=== PATIENT | female | born 1935 | race Caucasian/White ===

== ENCOUNTER 2019-05-30 12:28 | Emergency (ER) | payer MEDICARE, OTHER ==
[~2019-05-30] VITALS: Ht 157.5 cm; Wt 81.8 kg
[2019-05-30] MEDS ORDERED: CALC-1085 PO (12:50)
[2019-05-30] MEDS ORDERED: SIMV-259 PO (12:50)
[2019-05-30] MEDS ORDERED: LEVO50 PO (12:50)
[2019-05-30] MEDS ORDERED: SPIR25 PO (12:50)
[2019-05-30] MEDS ORDERED: DIVA125T32 PO (12:50)
[2019-05-30] MEDS ORDERED: PREG75 PO (12:50)
[2019-05-30] MEDS ORDERED: NITR0.4T52 SL (12:50)
[2019-05-30] MEDS ORDERED: LOSA50TA64 PO (12:50)
[2019-05-30] MEDS ORDERED: TRAM50TA4 PO (12:50)
[2019-05-30] MEDS ORDERED: HYDR25TA PO (12:50)
[2019-05-30] MEDS ORDERED: TRAZ-220 PO (12:50)
[2019-05-30] MEDS ORDERED: DONE10TA8 PO (12:50)
[2019-05-30] MEDS ORDERED: BISA10SU11 PR (12:51)
[2019-05-30] MEDS ORDERED: ACETAMINOPHEN 500 MG TABLET PO ONE (13:30)
[2019-05-30] MEDS ORDERED: TraMADol HCL 50 MG TABLET PO ONE (14:45)
[2019-05-30 17:30] VITALS: BP 144/58
== END 2019-05-30 18:30 | disposition home or self-care (01) ==
LOC: EDUNIT# 12:28 → EMS 12:40
DX: S80.01XA Contusion of right knee, initial encounter (principal); S00.93XA Contusion of unspecified part of head, initial encounter; S60.211A Contusion of right wrist, initial encounter; S70.02XA Contusion of left hip, initial encounter; S40.011A Contusion of right shoulder, initial encounter; S10.93XA Contusion of unspecified part of neck, initial encounter; F32.9 Major depressive disorder, single episode, unspecified; I10 Essential (primary) hypertension; E78.00 Pure hypercholesterolemia, unspecified; E03.9 Hypothyroidism, unspecified; Z88.0 Allergy status to penicillin; W19.XXXA Unspecified fall, initial encounter; Y93.89 Activity, other specified; Y92.89 Other specified places as the place of occurrence of the external cause; Y99.8 Other external cause status
CPT/HCPCS: 70450; 72125; 73503

== ENCOUNTER 2021-11-27 11:17 | Inpatient (IN) | payer MEDICARE, OTHER ==
[~2021-11-27] VITALS: Ht 165.1 cm; Wt 93.9 kg
[~2021-11-27 11:17] MED LIST: BISA10SU11 PR; CALC-1085 PO; DIVA125T32 PO; DONE10TA8 PO; HYDR25TA2 PO; LEVO50 PO; LOSA-382 PO; NITR0.4T52 SL; PREG75 PO; SIMV-259 PO; SPIR-37 PO; TRAM50TA4 PO; TRAZ-257 PO
[2021-11-27] MEDS ORDERED: 0.9% SODIUM CHLORIDE 10 ML SYRINGE IVP PRN (13:15)
[2021-11-27] MEDS ORDERED: SODIUM CHLORIDE 0.9% 2,650 ML IV ONE (13:15)
[2021-11-27 13:40] LABS: BASOPHILS % (AUTO) 0.1 % (0.0-2.0); EOSINOPHILS % (AUTO) 0 % (1.0-6.0); HEMATOCRIT 36.8 % (36-46); HEMOGLOBIN 12.4 g/dL (12.0-16.0); LYMPHOCYTES # (AUTO) 1.6 K/uL (1.0-4.8); LYMPHOCYTES % (AUTO) 6.8 % (22.0-44.0); MEAN CORPUSCULAR HEMOGLOBIN 29.9 pg (26.0-34.0); MEAN CORPUSCULAR HGB CONC 33.8 G/dL (31.0-37.0); MEAN CORPUSCULAR VOLUME 89 fL (80-100); MONOCYTES # (AUTO) 1.5 K/uL (0.1-1.0); MONOCYTES % (AUTO) 6.3 % (2.0-9.0); NEUTROPHILS # (AUTO) 20.2 K/uL (1.8-7.7); PLATELET COUNT (AUTO) 146 K/uL (150-450); RED BLOOD CELL COUNT(AUTO) 4.15 MIL/uL (4.00-5.20)
[2021-11-27 13:43] LABS: NEUTROPHILS % (AUTO) 86.8 % (40.0-70.0)
[2021-11-27 13:50] LABS: PROTHROMBIN TIME 11.1 SEC (9.4-11.6)
[2021-11-27 13:51] LABS: CALCIUM, TOTAL 8.7 mg/dL (8.8-10.5); CREATININE 2.38 mg/dL (0.60-1.30); POTASSIUM 4.1 mmol/L (3.5-5.1)
[2021-11-27 13:56] LABS: ALBUMIN 2.3 g/dL (3.4-5.0); BILIRUBIN,TOTAL 0.6 mg/dL (0.1-1.0); TOTAL PROTEIN, SERUM 7.2 g/dL (6.4-8.2)
[2021-11-27 14:23] LABS: LACTIC ACID 1.2 mmol/L (0.4-2.0)
[2021-11-27] MEDS ORDERED: CefTRIAXone 1 GM/DEXTROSE 50 ML IV ONE (14:30)
[2021-11-27] MEDS ORDERED: VANCOMYCIN HCL 1 GM/D5% WATER 200 ML IV ONE (14:30)
[2021-11-27 14:55] LABS: COVID AG,FIA SOURCE NASAL SWAB
[2021-11-27] MEDS ORDERED: *CLINICAL-CEFTAROLINE DOSING CLINICAL ONE (15:30)
[2021-11-27] MEDS ORDERED: SODIUM CHLORIDE 0.9% 1,000 ML IV ONE (15:45)
[2021-11-27] MEDS ORDERED: BISACODYL 10 MG RECTAL RECTAL SUPPOSITORY PR PRN (15:45)
[2021-11-27] MEDS ORDERED: DEXTROSE 50%-WATER 25 GM/50 ML SYRINGE IVP PRN (15:45)
[2021-11-27] MEDS: HEPARIN SODIUM,PORCINE 5,000 UNITS/ML VIAL SQ SCH (21:00)
[2021-11-27 22:07] VITALS: BP 119/24
[2021-11-28] MEDS: ACETAMINOPHEN 325 MG TABLET PO PRN ×3 (00:34→21:11)
[2021-11-28 04:43] VITALS: BP 130/56
[2021-11-28 05:11] LABS: GLUCOMETER DEV NAME(LOC) 6N.2; GLUCOSE,POINT OF CARE 96 MG/DL (70-110)
[2021-11-28 06:42] LABS: BASOPHILS % (AUTO) 0.1 % (0.0-2.0); EOSINOPHILS % (AUTO) 0.1 % (1.0-6.0); HEMATOCRIT 35.1 % (36-46); HEMOGLOBIN 12.2 g/dL (12.0-16.0); LYMPHOCYTES # (AUTO) 1.3 K/uL (1.0-4.8); LYMPHOCYTES % (AUTO) 5.6 % (22.0-44.0); MEAN CORPUSCULAR HEMOGLOBIN 30.7 pg (26.0-34.0); MEAN CORPUSCULAR HGB CONC 34.7 G/dL (31.0-37.0); MEAN CORPUSCULAR VOLUME 88 fL (80-100); MONOCYTES # (AUTO) 1.4 K/uL (0.1-1.0); PLATELET COUNT (AUTO) 132 K/uL (150-450); RED BLOOD CELL COUNT(AUTO) 3.96 MIL/uL (4.00-5.20); RED CELL DISTRIBUTION WIDTH 15.9 % (11.5-14.5)
[2021-11-28 06:53] LABS: NEUTROPHILS % (AUTO) 88.2 % (40.0-70.0)
[2021-11-28 06:55] LABS: CALCIUM, TOTAL 8.3 mg/dL (8.8-10.5); CREATININE 2.02 mg/dL (0.60-1.30)
[2021-11-28 07:14] LABS: POTASSIUM 3.6 mmol/L (3.5-5.1)
[2021-11-28 08:00] VITALS: BP 121/55
[2021-11-28] MEDS: HEPARIN SODIUM,PORCINE 5,000 UNITS/ML VIAL SQ SCH ×2 (08:48→22:21)
[2021-11-28] MEDS: CEFTAROLINE FOSAMIL 300 MG in DEXTROSE 5%-WATER 150 ML IV SCH ×2 (08:49→20:44)
[2021-11-28] MEDS: FAMOTIDINE 20 MG TABLET PO SCH (08:49)
[2021-11-28] MEDS: SODIUM CHLORIDE 0.9% 1,000 ML IV SCH (10:31)
[2021-11-28] MEDS: MORPHINE SULFATE 2 MG/ML SYRINGE IVP PRN ×3 (10:52→19:55)
[2021-11-28 13:32] LABS: GLUCOMETER DEV NAME(LOC) 6N.2; GLUCOSE,POINT OF CARE 160 MG/DL (70-110)
[2021-11-28 16:00] VITALS: BP 108/52
[2021-11-28 19:31] LABS: GLUCOMETER DEV NAME(LOC) 6N.2; GLUCOSE,POINT OF CARE 131 MG/DL (70-110)
[2021-11-28 19:55] VITALS: BP 144/58
[2021-11-28 22:37] VITALS: BP 145/60
[2021-11-28] MEDS: INSULIN LISPRO 100 UNITS/ML SQ PRN (23:20)
[2021-11-28 23:26] LABS: GLUCOMETER DEV NAME(LOC) 6N.2; GLUCOSE,POINT OF CARE 190 MG/DL (70-110)
[2021-11-29] MEDS: MELATONIN 3 MG TABLET PO PRN ×2 (00:53→22:44)
[2021-11-29 02:37] VITALS: BP 140/60
[2021-11-29] MEDS: MORPHINE SULFATE 2 MG/ML SYRINGE IVP PRN (05:39)
[2021-11-29 05:40] VITALS: BP 146/65
[2021-11-29 06:41] LABS: BASOPHILS % (AUTO) 0.1 % (0.0-2.0); EOSINOPHILS % (AUTO) 0.3 % (1.0-6.0); HEMATOCRIT 40.5 % (36-46); HEMOGLOBIN 13.4 g/dL (12.0-16.0); LYMPHOCYTES # (AUTO) 1.6 K/uL (1.0-4.8); LYMPHOCYTES % (AUTO) 5.7 % (22.0-44.0); MEAN CORPUSCULAR VOLUME 91 fL (80-100); MONOCYTES # (AUTO) 1.5 K/uL (0.1-1.0); MONOCYTES % (AUTO) 5.4 % (2.0-9.0); NEUTROPHILS # (AUTO) 25.2 K/uL (1.8-7.7); RED BLOOD CELL COUNT(AUTO) 4.45 MIL/uL (4.00-5.20); RED CELL DISTRIBUTION WIDTH 16.5 % (11.5-14.5)
[2021-11-29 07:55] LABS: NEUTROPHILS % (AUTO) 88.5 % (40.0-70.0)
[2021-11-29 08:01] LABS: GLUCOMETER DEV NAME(LOC) 6N.2; GLUCOSE,POINT OF CARE 94 MG/DL (70-110)
[2021-11-29 08:27] VITALS: BP 146/51
[2021-11-29] MEDS: HEPARIN SODIUM,PORCINE 5,000 UNITS/ML VIAL SQ SCH ×2 (08:33→21:25)
[2021-11-29] MEDS: FAMOTIDINE 20 MG TABLET PO SCH (08:33)
[2021-11-29 08:41] LABS: PLATELET COUNT (AUTO) 146 K/uL (150-450)
[2021-11-29] MEDS: CEFTAROLINE FOSAMIL 300 MG in DEXTROSE 5%-WATER 150 ML IV SCH ×2 (12:40→20:00)
[2021-11-29] MEDS: SODIUM CHLORIDE 0.9% 1,000 ML IV SCH ×2 (12:41→14:46)
[2021-11-29 16:26] LABS: GLUCOMETER DEV NAME(LOC) 4E.2; GLUCOSE,POINT OF CARE 147 MG/DL (70-110)
[2021-11-29 16:49] VITALS: BP 138/72
[2021-11-29] MEDS: INSULIN LISPRO 100 UNITS/ML SQ PRN ×2 (17:19→22:51)
[2021-11-29 19:31] LABS: GLUCOMETER DEV NAME(LOC) 6N.1; GLUCOSE,POINT OF CARE 228 MG/DL (70-110)
[2021-11-29 19:57] VITALS: BP 157/62
[2021-11-29 22:37] VITALS: BP 157/62
[2021-11-29 22:56] LABS: GLUCOMETER DEV NAME(LOC) 4E.2; GLUCOSE,POINT OF CARE 177 MG/DL (70-110)
[2021-11-30 05:10] VITALS: BP 155/77
[2021-11-30 06:30] VITALS: BP 148/63
[2021-11-30 07:00] LABS: GLUCOMETER DEV NAME(LOC) 4E.2; GLUCOSE,POINT OF CARE 112 MG/DL (70-110)
[2021-11-30 08:00] VITALS: BP 149/77
[2021-11-30] MEDS: HEPARIN SODIUM,PORCINE 5,000 UNITS/ML VIAL SQ SCH ×2 (08:33→19:39)
[2021-11-30] MEDS: FAMOTIDINE 20 MG TABLET PO SCH (08:33)
[2021-11-30] MEDS: SODIUM CHLORIDE 0.9% 1,000 ML IV SCH ×2 (08:34→19:45)
[2021-11-30] MEDS: CEFTAROLINE FOSAMIL 300 MG in DEXTROSE 5%-WATER 150 ML IV SCH ×2 (08:34→19:39)
[2021-11-30 09:04] LABS: BASOPHILS % (AUTO) 0.2 % (0.0-2.0); EOSINOPHILS % (AUTO) 0.2 % (1.0-6.0); HEMATOCRIT 34.9 % (36-46); HEMOGLOBIN 11.8 g/dL (12.0-16.0); LYMPHOCYTES # (AUTO) 1.6 K/uL (1.0-4.8); LYMPHOCYTES % (AUTO) 7.2 % (22.0-44.0); MEAN CORPUSCULAR HEMOGLOBIN 29.8 pg (26.0-34.0); MEAN CORPUSCULAR HGB CONC 33.8 G/dL (31.0-37.0); MEAN CORPUSCULAR VOLUME 88 fL (80-100); MONOCYTES # (AUTO) 1.4 K/uL (0.1-1.0); MONOCYTES % (AUTO) 6.1 % (2.0-9.0); NEUTROPHILS % (AUTO) 86.3 % (40.0-70.0); PLATELET COUNT (AUTO) 185 K/uL (150-450); RED BLOOD CELL COUNT(AUTO) 3.95 MIL/uL (4.00-5.20); RED CELL DISTRIBUTION WIDTH 16.2 % (11.5-14.5)
[2021-11-30 09:15] LABS: CALCIUM, TOTAL 8.3 mg/dL (8.8-10.5); CREATININE 1.44 mg/dL (0.60-1.30); POTASSIUM 3.2 mmol/L (3.5-5.1)
[2021-11-30] MEDS: INSULIN LISPRO 100 UNITS/ML SQ PRN ×2 (12:08→20:30)
[2021-11-30 16:23] VITALS: BP 137/56
[2021-11-30 19:36] LABS: GLUCOMETER DEV NAME(LOC) 4E.2; GLUCOSE,POINT OF CARE 116 MG/DL (70-110)
[2021-11-30 19:45] LABS: GLUCOMETER DEV NAME(LOC) 6N.2; GLUCOSE,POINT OF CARE 141 MG/DL (70-110)
[2021-11-30] MEDS: ACETAMINOPHEN 325 MG TABLET PO PRN (19:51)
[2021-11-30 20:33] VITALS: BP 125/71
[2021-11-30 20:46] LABS: GLUCOMETER DEV NAME(LOC) 6N.1; GLUCOSE,POINT OF CARE 154 MG/DL (70-110)
[2021-11-30] MEDS: POTASSIUM CHL 10 MEQ/WATER 50 ML IV SCH (23:05)
[2021-12-01] MEDS: POTASSIUM CHL 10 MEQ/WATER 50 ML IV SCH ×3 (00:19→02:09)
[2021-12-01] MEDS: MORPHINE SULFATE 2 MG/ML SYRINGE IVP PRN ×2 (03:15→22:49)
[2021-12-01 04:01] VITALS: BP 165/65
[2021-12-01] MEDS: ACETAMINOPHEN 325 MG TABLET PO PRN (05:32)
[2021-12-01 06:12] LABS: GLUCOMETER DEV NAME(LOC) 4E.2; GLUCOSE,POINT OF CARE 100 MG/DL (70-110)
[2021-12-01 06:57] LABS: CALCIUM, TOTAL 8.2 mg/dL (8.8-10.5); CREATININE 1.42 mg/dL (0.60-1.30); POTASSIUM 3.7 mmol/L (3.5-5.1)
[2021-12-01 07:19] VITALS: BP 153/62
[2021-12-01] MEDS: CEFTAROLINE FOSAMIL 300 MG in DEXTROSE 5%-WATER 150 ML IV SCH (08:30)
[2021-12-01] MEDS: HEPARIN SODIUM,PORCINE 5,000 UNITS/ML VIAL SQ SCH ×2 (08:31→20:10)
[2021-12-01] MEDS: SODIUM CHLORIDE 0.9% 1,000 ML IV SCH ×2 (08:31→22:42)
[2021-12-01] MEDS: FAMOTIDINE 20 MG TABLET PO SCH (08:31)
[2021-12-01 13:01] LABS: GLUCOMETER DEV NAME(LOC) 6N.1; GLUCOSE,POINT OF CARE 135 MG/DL (70-110)
[2021-12-01 16:23] VITALS: BP 144/71
[2021-12-01] MEDS: INSULIN LISPRO 100 UNITS/ML SQ PRN ×2 (17:13→20:40)
[2021-12-01 17:26] LABS: GLUCOMETER DEV NAME(LOC) 4E.2; GLUCOSE,POINT OF CARE 186 MG/DL (70-110)
[2021-12-01] MEDS: CEFTAROLINE FOSAMIL 400 MG in DEXTROSE 5%-WATER 250 ML IV SCH (20:10)
[2021-12-01 20:31] VITALS: BP 146/52
[2021-12-01] MEDS: MELATONIN 3 MG TABLET PO PRN (22:49)
[2021-12-01 23:21] LABS: GLUCOMETER DEV NAME(LOC) 6N.2; GLUCOSE,POINT OF CARE 146 MG/DL (70-110)
[2021-12-02 04:14] VITALS: BP 155/56
[2021-12-02 06:58] LABS: BASOPHILS % (AUTO) 0.4 % (0.0-2.0); EOSINOPHILS % (AUTO) 0.4 % (1.0-6.0); HEMATOCRIT 34.3 % (36-46); HEMOGLOBIN 11.7 g/dL (12.0-16.0); LYMPHOCYTES # (AUTO) 2.3 K/uL (1.0-4.8); LYMPHOCYTES % (AUTO) 16.7 % (22.0-44.0); MEAN CORPUSCULAR HEMOGLOBIN 29.7 pg (26.0-34.0); MEAN CORPUSCULAR HGB CONC 34.1 G/dL (31.0-37.0); MEAN CORPUSCULAR VOLUME 87 fL (80-100); MONOCYTES # (AUTO) 0.9 K/uL (0.1-1.0); MONOCYTES % (AUTO) 6.6 % (2.0-9.0); NEUTROPHILS # (AUTO) 10.3 K/uL (1.8-7.7); NEUTROPHILS % (AUTO) 75.9 % (40.0-70.0); PLATELET COUNT (AUTO) 239 K/uL (150-450); RED BLOOD CELL COUNT(AUTO) 3.94 MIL/uL (4.00-5.20); RED CELL DISTRIBUTION WIDTH 15.9 % (11.5-14.5)
[2021-12-02 08:29] VITALS: BP 161/56
[2021-12-02 08:41] LABS: GLUCOMETER DEV NAME(LOC) 6N.1; GLUCOSE,POINT OF CARE 102 MG/DL (70-110)
[2021-12-02] MEDS: FAMOTIDINE 20 MG TABLET PO SCH (08:46)
[2021-12-02] MEDS: HEPARIN SODIUM,PORCINE 5,000 UNITS/ML VIAL SQ SCH ×2 (08:47→21:57)
[2021-12-02] MEDS: CEFTAROLINE FOSAMIL 400 MG in DEXTROSE 5%-WATER 250 ML IV SCH ×2 (08:48→18:07)
[2021-12-02] MEDS: LOSARTAN POTASSIUM 25 MG TABLET PO SCH (10:01)
[2021-12-02] MEDS: SODIUM CHLORIDE 0.9% 1,000 ML IV SCH (12:44)
[2021-12-02 15:52] VITALS: BP 145/66
[2021-12-02] MEDS ORDERED: CLINDAMYCIN HCL 300 MG CAPSULE PO SCH (16:00)
[2021-12-02 19:26] LABS: GLUCOMETER DEV NAME(LOC) 4E.2; GLUCOSE,POINT OF CARE 123 MG/DL (70-110)
[2021-12-02 20:04] VITALS: BP 141/53
[2021-12-03] MEDS: MELATONIN 3 MG TABLET PO PRN (04:01)
[2021-12-03] MEDS: ACETAMINOPHEN 325 MG TABLET PO PRN ×2 (04:01→18:34)
[2021-12-03] MEDS: SODIUM CHLORIDE 0.9% 1,000 ML IV SCH ×2 (04:05→17:34)
[2021-12-03 05:04] VITALS: BP 144/57
[2021-12-03 05:11] LABS: GLUCOMETER DEV NAME(LOC) 4E.2; GLUCOSE,POINT OF CARE 126 MG/DL (70-110)
[2021-12-03 07:41] LABS: GLUCOMETER DEV NAME(LOC) 6N.1; GLUCOSE,POINT OF CARE 138 MG/DL (70-110)
[2021-12-03 07:47] VITALS: BP 155/67
[2021-12-03] MEDS: CEFTAROLINE FOSAMIL 400 MG in DEXTROSE 5%-WATER 250 ML IV SCH ×2 (08:10→17:34)
[2021-12-03] MEDS: LOSARTAN POTASSIUM 25 MG TABLET PO SCH (08:10)
[2021-12-03] MEDS: FAMOTIDINE 20 MG TABLET PO SCH (08:11)
[2021-12-03] MEDS: HEPARIN SODIUM,PORCINE 5,000 UNITS/ML VIAL SQ SCH ×2 (08:15→20:19)
[2021-12-03] MEDS: MORPHINE SULFATE 2 MG/ML SYRINGE IVP PRN ×2 (11:22→20:24)
[2021-12-03 16:30] VITALS: BP 152/42
[2021-12-03 19:42] VITALS: BP 130/75
[2021-12-03 22:11] LABS: GLUCOMETER DEV NAME(LOC) 6N.1; GLUCOSE,POINT OF CARE 125 MG/DL (70-110)
[2021-12-04] MEDS: ACETAMINOPHEN 325 MG TABLET PO PRN (01:12)
[2021-12-04 05:53] VITALS: BP 144/56
[2021-12-04] MEDS: CEFTAROLINE FOSAMIL 400 MG in DEXTROSE 5%-WATER 250 ML IV SCH ×2 (06:17→17:30)
[2021-12-04 06:36] LABS: GLUCOMETER DEV NAME(LOC) 6N.2; GLUCOSE,POINT OF CARE 112 MG/DL (70-110)
[2021-12-04 08:16] LABS: GLUCOMETER DEV NAME(LOC) 4E.2; GLUCOSE,POINT OF CARE 127 MG/DL (70-110)
[2021-12-04 08:16] LABS: GLUCOMETER DEV NAME(LOC) 4E.2; GLUCOSE,POINT OF CARE 134 MG/DL (70-110)
[2021-12-04 08:28] VITALS: BP 168/57
[2021-12-04] MEDS: LOSARTAN POTASSIUM 25 MG TABLET PO SCH (08:50)
[2021-12-04] MEDS: FAMOTIDINE 20 MG TABLET PO SCH (08:50)
[2021-12-04] MEDS: HEPARIN SODIUM,PORCINE 5,000 UNITS/ML VIAL SQ SCH (08:51)
[2021-12-04] MEDS: SODIUM CHLORIDE 0.9% 1,000 ML IV SCH (08:51)
[2021-12-04] MEDS: MORPHINE SULFATE 2 MG/ML SYRINGE IVP PRN ×2 (09:04→17:34)
[2021-12-04] MEDS ORDERED: CLIN300C3 PO (12:56)
[2021-12-04 13:51] LABS: BASOPHILS % (AUTO) 0.4 % (0.0-2.0); EOSINOPHILS % (AUTO) 0.7 % (1.0-6.0); HEMATOCRIT 32.4 % (36-46); HEMOGLOBIN 10.8 g/dL (12.0-16.0); LYMPHOCYTES # (AUTO) 1.9 K/uL (1.0-4.8); LYMPHOCYTES % (AUTO) 16.5 % (22.0-44.0); MEAN CORPUSCULAR HEMOGLOBIN 29.3 pg (26.0-34.0); MEAN CORPUSCULAR HGB CONC 33.3 G/dL (31.0-37.0); MEAN CORPUSCULAR VOLUME 88 fL (80-100); MONOCYTES # (AUTO) 0.8 K/uL (0.1-1.0); MONOCYTES % (AUTO) 6.8 % (2.0-9.0); NEUTROPHILS # (AUTO) 8.7 K/uL (1.8-7.7); NEUTROPHILS % (AUTO) 75.6 % (40.0-70.0); PLATELET COUNT (AUTO) 262 K/uL (150-450); RED BLOOD CELL COUNT(AUTO) 3.68 MIL/uL (4.00-5.20); RED CELL DISTRIBUTION WIDTH 16.1 % (11.5-14.5)
[2021-12-04 14:03] LABS: CALCIUM, TOTAL 8.1 mg/dL (8.8-10.5); CREATININE 1.34 mg/dL (0.60-1.30); POTASSIUM 3.5 mmol/L (3.5-5.1)
[2021-12-04 14:09] LABS: ALBUMIN 1.6 g/dL (3.4-5.0); BILIRUBIN,TOTAL 0.6 mg/dL (0.1-1.0); TOTAL PROTEIN, SERUM 7.1 g/dL (6.4-8.2)
[2021-12-04 19:46] LABS: GLUCOMETER DEV NAME(LOC) 4E.2; GLUCOSE,POINT OF CARE 103 MG/DL (70-110)
== END 2021-12-04 18:40 | DRG 603 ==
LOC: EMS 11:22 → 6S 20:32 → 6N 11-29 16:29 → 6S 11-30 10:17
PROVIDERS: ADMIT Internal Medicine; ATTEND Internal Medicine
PROC: 05HF33Z Insertion of Infusion Device into Left Cephalic Vein, Percutaneous Approach (ICD-10-PCS; principal; 2021-12-03)
DX: L03.116 Cellulitis of left lower limb (principal); N17.9 Acute kidney failure, unspecified; F03.90 Unspecified dementia, unspecified severity, without behavioral disturbance, psychotic disturbance, mood disturbance, and anxiety; E03.9 Hypothyroidism, unspecified; E66.9 Obesity, unspecified; Z68.32 Body mass index [BMI] 32.0-32.9, adult; E78.00 Pure hypercholesterolemia, unspecified; F32.A Depression, unspecified; E11.40 Type 2 diabetes mellitus with diabetic neuropathy, unspecified; N28.9 Disorder of kidney and ureter, unspecified; Z20.822 Contact with and (suspected) exposure to COVID-19; I11.9 Hypertensive heart disease without heart failure; I25.10 Atherosclerotic heart disease of native coronary artery without angina pectoris; Z87.442 Personal history of urinary calculi; Z88.0 Allergy status to penicillin; Z79.4 Long term (current) use of insulin
CPT/HCPCS: 36245; 36569; 71045; 73700; 76937; 80048; 80053; 82962; 83605; 85025; 85610; 87040; 87081; 92610; 93005; 93925; 93970; 99285; J0696; J0712; J1644; J2270; J3370; J3480; J7030; J7060; 36415-L1; 36415-TC